=== PATIENT | male | born 1955 | race Caucasian/White ===

== ENCOUNTER 2020-08-25 12:40 | Inpatient (IN) | payer BC ==
[~2020-08-25] VITALS: Ht 177.8 cm; Wt 104.3 kg
[2020-08-25] VITALS (9 sets, daily range): BP systolic 134–188; BP diastolic 75–91
[2020-08-25 12:59] LABS: BASO # 0.1 10*3/uL (0.0-0.1); BASO % 0.7 % (0.0-1.0); EOS # 0.1 10*3/uL (0.0-0.4); EOS % 1.2 % (1.0-4.0); LYMPH # 2.9 10*3/uL (1.3-4.4); LYMPH % 28.2 % (27.0-41.0); MEAN CELL VOLUME 81.1 fl (80.0-94.0); MEAN CORPUSCULAR HGB 28.5 pg (27.0-31.0); MEAN CORPUSCULAR HGB CONC 35.1 g/dl (33.0-37.0); MEAN PLATELET VOLUME 10.1 fl (9.6-12.3); MONO # 0.7 10*3/uL (0.1-1.0); MONO % 6.7 % (3.0-9.0); NEUT # 6.4 10*3/uL (2.3-7.9); NEUT % 62.9 % (47.0-73.0); PLATELET COUNT AUTOMATED 181 10*3/uL (130-400); RED BLOOD COUNT 5.55 10*6/uL (4.50-5.90); RED CELL DISTRI WIDTH 12.1 % (0-14.5); WHITE BLOOD COUNT 10.2 10*3/uL (4.8-10.8)
[2020-08-25 13:10] LABS: ACT PARTIAL THROMBO TIME 23.9 SECONDS (20.0-32.1)
[2020-08-25 13:16] LABS: ALBUMIN 3.8 gm/dl (3.1-4.5); ALKALINE PHOSPHATASE 74 U/L (45-117); BUN 18 mg/dl (7-24); CHLORIDE 101 mmol/L (98-107); CREATININE 1.11 mg/dL (0.70-1.30); POTASSIUM 3.3 mmol/L (3.5-5.1); SGOT/AST 18 IU/L (3-35); SGPT/ALT 40 U/L (12-78); SODIUM 136 mmol/L (136-145); TOTAL PROTEIN 7.3 gm/dL (6.4-8.2)
[2020-08-25 13:19] LABS: TROPONIN I < 0.015 ng/ml (<0.045)
[2020-08-25] MEDS ORDERED: COLESTIPOL HYDRO1 GM PO (14:02)
[2020-08-25] MEDS ORDERED: ZETIA10 MG PO (14:03)
[2020-08-25] MEDS ORDERED: ATORVASTATIN CA20 M1 PO (14:03)
[2020-08-25] MEDS ORDERED: BENEMID PO (14:04)
[2020-08-25] MEDS ORDERED: AMLODIPINE BESY10 MG PO (14:04)
[2020-08-25] MEDS ORDERED: LOPRESSOR100 M1 PO (14:05)
[2020-08-25] MEDS ORDERED: LOSARTAN-HCTZ1 EAC1 PO (14:06)
[2020-08-25] MEDS ORDERED: PRAMIPEXOLE DI1.5 MG PO (14:07)
[2020-08-25] MEDS ORDERED: FLUOXETINE HYDR20 M1 PO (14:08)
[2020-08-25] MEDS ORDERED: ST. JOSEPH ASPI81 MG PO (14:12)
[2020-08-25] MEDS ORDERED: ALLEGRA-D 24 H1 EACH PO (14:12)
[2020-08-25] MEDS ORDERED: PRILOSEC10 M2 PO (16:53)
== END 2020-08-25 21:46 | disposition short-term general hospital (02) | DRG 282 ==
LOC: ED 12:40 → EDHOLD 13:40
PROVIDERS: Student in an Organized Health Care Education/Training Program; ADMIT Emergency Medicine; ATTEND Emergency Medicine
DX: I21.9 Acute myocardial infarction, unspecified (principal); E87.6 Hypokalemia; R73.9 Hyperglycemia, unspecified; I10 Essential (primary) hypertension; E78.5 Hyperlipidemia, unspecified; M1A.0790 Idiopathic chronic gout, unspecified ankle and foot, without tophus (tophi); G25.81 Restless legs syndrome; I25.10 Atherosclerotic heart disease of native coronary artery without angina pectoris; I25.2 Old myocardial infarction; Z88.8 Allergy status to other drugs, medicaments and biological substances; Z95.5 Presence of coronary angioplasty implant and graft; Z80.9 Family history of malignant neoplasm, unspecified; Z79.899 Other long term (current) drug therapy; Z79.82 Long term (current) use of aspirin